=== PATIENT | male | born 1975 | race Two or more races ===

== ENCOUNTER 2019-07-26 11:53 | Emergency (ER) | payer SELFPAY ==
[~2019-07-26] VITALS: Ht 165.1 cm; Wt 68.0 kg
[2019-07-26 12:22] VITALS: BP 153/113
--- NOTE | 2019-07-26 12:28 | NUR ---
PATIENT ARRIVES WITH A SORE THROAT, BODY ACHES THAT BEGAN YESTERDAY. NO COUGH.
--- NOTE | 2019-07-26 13:05 | NUR ---
FIRST CONTACT WITH PT. PT C/O SORE THROAT SINCE YESTERDAY. PT'S AOX4. RESPS EVEN AND UNLABORED.
== END 2019-07-26 14:14 | disposition home or self-care (01) ==
LOC: ED 12:58
DX: J02.8 Acute pharyngitis due to other specified organisms (principal); B97.89 Other viral agents as the cause of diseases classified elsewhere
CPT/HCPCS: 87081; 87880; 99283

== ENCOUNTER 2019-12-08 06:36 | Inpatient (IN) | payer OTHER ==
[~2019-12-08] VITALS: Ht 172.7 cm; Wt 63.4 kg
--- NOTE | 2019-12-08 06:52 | NUR ---
PT BIB [facility] AFTER HAVING NAUSEA AND DIARRHEA X1 WEEK. PT REPORTS THAT HE HAD FEVERS OVER THE LAST WEEK THAT BROKE WITH TYLENOL. PT STATES THREE DAYS AGO HE DEVELOPED A COUGH. PT REPORTS SLIGHT SOB AND THAT DEEP BREATHS ARE DIFFICULT. PT APPEARS TO NOT BE IN DISTRESS AT THIS TIME. RESTING IN [facility]. WCTM. PT PLACED ON SPO2/BP/ECG MONITORING.
--- NOTE | 2019-12-08 07:01 | NUR ---
Report to Shan REECE, pt care trasnferred at this time.
--- NOTE | 2019-12-08 07:30 | NUR ---
PIV PLACED. BLOOD CULTURES AND LABS DRAWN. 2ND SET BC TAKEN BY LAB. X RAY COMPLETE AT THIS TIME.
[2019-12-08 07:35] LABS: PLATELET (DIC) 241 x10^3/uL (130-400)
[2019-12-08 07:36] LABS: BASOPHILS # (AUTO) 0.01 x10^3/uL (0-0.1); BASOPHILS % (AUTO) 0 % (0-1); EOSINOPHILS # (AUTO) 0.01 x10^3/uL (0-0.4); EOSINOPHILS % (AUTO) 0 % (1-7); LYMPHOCYTES % (AUTO) 22 % (22-44); MD NO; MEAN CORPUSCULAR HEMOGLOBIN 29.9 pg (27.5-34.5); MEAN CORPUSCULAR HGB CONC 32.6 g/dL (33.2-36.2); MEAN CORPUSCULAR VOLUME 91.8 fL (81-97); MEAN PLATELET VOLUME 8.9 fL (7.4-10.4); MONOCYTES # (AUTO) 0.41 x10^3/uL (0.2-0.8); MONOCYTES % (AUTO) 10 % (2-9); NEUTROPHILS # (AUTO) 2.76 x10^3/uL (1.8-6.8); NEUTROPHILS % (AUTO) 68 % (42-75); PLATELET COUNT 240 x10^3/uL (130-400)
[2019-12-08 07:47] LABS: ALANINE AMINOTRANSFERASE 39 U/L (12-78); ANION GAP 9 mmol/L (5-15); CALCIUM 8.9 mg/dL (8.5-10.1); CHLORIDE 97 mmol/L (98-107); CREATININE 0.99 mg/dL (0.7-1.3)
[2019-12-08 07:54] LABS: ALKALINE PHOSPHATASE 60 U/L (45-117); BILIRUBIN,TOTAL 0.8 mg/dL (0.2-1.0); TOTAL PROTEIN 8.4 g/dL (6.4-8.2)
[2019-12-08 08:25] LABS: D-DIMER (DIC) 0.75 ug/mlFEU (0.00-0.52); PROTIME 9.8 Seconds (9.6-11.5); PTT 26 Seconds (25-31)
[2019-12-08 08:27] LABS: FIBRINOGEN > 860 mg/dL (200-340)
[2019-12-08] MEDS ORDERED: POTASSIUM CHLORIDE 20 MEQ in SODIUM CHLORIDE 0.9% 1,000 ML IV ONE (08:40)
[2019-12-08] MEDS ORDERED: CEFTRIAXONE PMX 1GM/50ML 50 ML ONE (08:49)
[2019-12-08] MEDS ORDERED: POTASSIUM CHLORIDE 20 MEQ TAB.ER.PRT ONE (08:51)
[2019-12-08] MEDS ORDERED: ONDANSETRON ODT 4 MG PO PRN (09:00)
[2019-12-08] MEDS ORDERED: ACETAMINOPHEN 325 MG TABLET PO PRN (09:00)
[2019-12-08] MEDS ORDERED: POTASSIUM CHLORIDE 20 MEQ TAB.ER.PRT PO ONE (09:00)
[2019-12-08] MEDS: CEFTRIAXONE PMX 2GM/50ML 50 ML IV SCH (09:00)
[2019-12-08] MEDS ORDERED: SODIUM CHLORIDE FLUSH 10ML SYR IVF PRN (09:00)
[2019-12-08] MEDS ORDERED: ONDANSETRON 2MG/ML, 2ML IVPush PRN (09:00)
[2019-12-08] MEDS ORDERED: AZITHROMYCIN 500 MG in SODIUM CHLORIDE 0.9% 250 ML IVPB ONE (09:00)
--- NOTE | 2019-12-08 09:00 | NUR ---
PT MEDICATED PER ORDER. VSS AT THIS TIME. PT TO BE ADMITTED TO [facility]. PT AGREES WITH POC
--- NOTE | 2019-12-08 09:16 | NUR ---
BREAK RN: PT RESTING ON GURNEY. NADN. PHIPPSS. YELLOW SLIP SENT TO PHARMACY FOR MEDS PER JUL.
[2019-12-08] MEDS: AZITHROMYCIN 500 MG in SODIUM CHLORIDE 0.9% 250 ML IV SCH (09:48)
[2019-12-08] MEDS ORDERED: CEFTRIAXONE PMX 1GM/50ML 50 ML IVPB ONE (10:00)
[2019-12-08] MEDS ORDERED: ENOXAPARIN 40 MG/0.4 ML SQ SCH (11:00)
[2019-12-08] MEDS ORDERED: ASCORBATE SODIUM 3,000 MG in SODIUM CHLORIDE 0.9% 250 ML IVPB SCH (11:00)
[2019-12-08] MEDS: DEXAMETHASONE 4 MG/ML, 1ML IVPush SCH (11:17)
[2019-12-08] MEDS: ZINC SULFATE 220 MG CAPSULE PO SCH (12:44)
[2019-12-08] MEDS: ENOXAPARIN 60 MG/0.6 ML SQ SCH (12:44)
[2019-12-08 12:47] VITALS: BP 121/84
[2019-12-08] MEDS: POTASSIUM CHLORIDE 20 MEQ TAB.ER.PRT PO SCH (16:42)
[2019-12-08] MEDS: ASCORBATE SODIUM 3,000 MG in SODIUM CHLORIDE 0.9% 250 ML IVPB SCH ×2 (16:42→22:33)
[2019-12-08] MEDS: MELATONIN 5 MG TABLET PO SCH (20:54)
[2019-12-08 20:55] VITALS: BP 128/96
[2019-12-09 00:55] VITALS: BP 121/88
[2019-12-09] MEDS: ENOXAPARIN 60 MG/0.6 ML SQ SCH ×2 (00:55→13:06)
[2019-12-09] MEDS: ASCORBATE SODIUM 3,000 MG in SODIUM CHLORIDE 0.9% 250 ML IVPB SCH ×4 (04:53→23:07)
[2019-12-09 05:19] LABS: BASOPHILS # (AUTO) 0.02 x10^3/uL (0-0.1); BASOPHILS % (AUTO) 0 % (0-1); EOSINOPHILS % (AUTO) 0 % (1-7); LYMPHOCYTES # (AUTO) 0.77 x10^3/uL (1-3.4); LYMPHOCYTES % (AUTO) 16 % (22-44); MD NO; MEAN CORPUSCULAR HEMOGLOBIN 30.5 pg (27.5-34.5); MEAN CORPUSCULAR HGB CONC 32.9 g/dL (33.2-36.2); MEAN CORPUSCULAR VOLUME 92.6 fL (81-97); MONOCYTES # (AUTO) 0.56 x10^3/uL (0.2-0.8); MONOCYTES % (AUTO) 12 % (2-9); NEUTROPHILS # (AUTO) 3.53 x10^3/uL (1.8-6.8); NEUTROPHILS % (AUTO) 72 % (42-75); PLATELET COUNT 297 x10^3/uL (130-400); RED BLOOD COUNT 4.78 x10^6/uL (4.38-5.82); RED CELL DISTRIBUTION WIDTH 13.6 % (9.4-14.8)
[2019-12-09 05:28] LABS: ALBUMIN 2.6 g/dL (3.4-5.0); ANION GAP 5 mmol/L (5-15); CALCIUM 8.4 mg/dL (8.5-10.1); CHLORIDE 106 mmol/L (98-107)
[2019-12-09 05:36] LABS: ALANINE AMINOTRANSFERASE 50 U/L (12-78); ALKALINE PHOSPHATASE 48 U/L (45-117); BILIRUBIN,TOTAL 0.5 mg/dL (0.2-1.0); CREATININE 0.89 mg/dL (0.7-1.3)
[2019-12-09] MEDS: ZINC SULFATE 220 MG CAPSULE PO SCH (09:24)
[2019-12-09] MEDS: POTASSIUM CHLORIDE 20 MEQ TAB.ER.PRT PO SCH (09:24)
[2019-12-09] MEDS: CEFTRIAXONE PMX 2GM/50ML 50 ML IV SCH (09:24)
[2019-12-09] MEDS: DEXAMETHASONE 4 MG/ML, 1ML IVPush SCH (09:25)
[2019-12-09 10:04] VITALS: BP 115/76
[2019-12-09] MEDS: AZITHROMYCIN 500 MG in SODIUM CHLORIDE 0.9% 250 ML IV SCH (10:09)
[2019-12-09 14:39] VITALS: BP 117/78
[2019-12-09 18:34] VITALS: BP 130/87
[2019-12-09] MEDS: MELATONIN 5 MG TABLET PO SCH (23:08)
[2019-12-10 00:42] VITALS: BP 121/93
[2019-12-10] MEDS: ASCORBATE SODIUM 3,000 MG in SODIUM CHLORIDE 0.9% 250 ML IVPB SCH ×2 (05:09→11:39)
[2019-12-10] MEDS: ZINC SULFATE 220 MG CAPSULE PO SCH (08:19)
[2019-12-10] MEDS: ENOXAPARIN 60 MG/0.6 ML SQ SCH (08:20)
[2019-12-10] MEDS: CEFTRIAXONE PMX 2GM/50ML 50 ML IV SCH (08:20)
[2019-12-10] MEDS: DEXAMETHASONE 4 MG/ML, 1ML IVPush SCH (08:20)
[2019-12-10 08:37] VITALS: BP 119/84
[2019-12-10] MEDS: AZITHROMYCIN 500 MG in SODIUM CHLORIDE 0.9% 250 ML IV SCH (09:12)
[2019-12-10] MEDS ORDERED: MELA5TAB14 PO (11:29)
[2019-12-10] MEDS ORDERED: ZINC220C7 PO (11:29)
[2019-12-10] MEDS ORDERED: ASCO500C10 PO (11:29)
[2019-12-10] MEDS ORDERED: CEFDINIR PO (11:29)
[2019-12-10] MEDS ORDERED: DEXA6TAB6 PO (11:29)
[2019-12-10] MEDS ORDERED: AZIT500T PO (11:29)
[2019-12-10 12:37] VITALS: BP 127/84
== END 2019-12-10 15:27 | disposition home or self-care (01) | DRG 177 ==
LOC: ED 08:01 → SUATTDRO 08:47 → EDIP 08:48 → 3N 10:25
PROVIDERS: ADMIT Internal Medicine; ATTEND Internal Medicine
DX: U07.1 COVID-19 (principal); J12.89 Other viral pneumonia; J15.9 Unspecified bacterial pneumonia; E44.0 Moderate protein-calorie malnutrition; E87.6 Hypokalemia; R19.7 Diarrhea, unspecified; Z68.21 Body mass index [BMI] 21.0-21.9, adult; Z79.899 Other long term (current) drug therapy
CPT/HCPCS: 36415; 71045; 80053; 82728; 83605; 83615; 84145; 85025; 85049; 85379; 85384; 85610; 85730; 86140; 87040; 87635; 93005; G0378; J0456; J0696; J1100; J1650; J7050